=== PATIENT | female | born 1970 | race Caucasian/White ===

== ENCOUNTER 2016-11-09 13:32 | Emergency (ER) | payer OTHER ==
[~2016-11-09] VITALS: Wt 82.6 kg
[~2016-11-09 13:32] MED LIST: 'PARAFON FORTE500 M1 PO; ANTIVERT25 MG PO; ATIVAN1 MG PO; AUGMENTIN 875 M1 TAB PO; BACTRIM DS 8001 TA1 PO; CELEXA10 MG PO; CELEXA20 MG PO; CIPRO250 MG PO; CIPRODEX 0.3%-7.5 ML OT; CIPROFLOXACIN500 MG PO; CLARITIN10 MG PO; CYCLOBENZAPRINE10 MG PO; DARVOCET N 1001 TAB PO; EFFEXOR XR150 MG PO; FLEXERIL10 MG PO; FLEXERIL5 MG PO; LOPRESSOR100 MG PO; Lopressor25 MG PO; MACROBID100 M1 PO; MAXIDE; MEDROL DOSEPAK4 MG PO; MELOXICAM7.5 MG PO; MOTRIN800 MG PO; NAPROSYN500 MG PO; NEURONTIN100 MG PO; NEURONTIN300 MG PO; NORFLEX100 MG PO; PERCOCET 325 MG1 TA2 PO; PHENERGAN25 M1 PO; PREDNICOT20 MG PO; PRILOSEC20 M1 PO; ROBAXIN500 MG PO; ROBAXIN750 MG PO; SEPTRA DS 800 M1 TAB PO; TOPAMAX25 M3 PO; TRAMADOL HCL50 MG PO; TYLENOL W/CODEI1 TA2 PO; ULTRAM50 MG PO; VICODIN 500 MG-1 TAB PO; ZITHROMAX Z PA250 MG PO; Zofran4 MG PO
[2016-11-09 13:53] VITALS: BP 134/80
[2016-11-09] MEDS ORDERED: ABILIFY5 MG PO (13:56)
[2016-11-09 14:31] LABS: EOS % 0.1 % (1.0-4.0); HEMATOCRIT 37.7 % (37.0-47.0); HEMOGLOBIN 12.6 g/dl (12.0-16.0); LYMPH # 1.7 10*3/uL (1.3-4.4); LYMPH % 24.7 % (27.0-41.0); MEAN CELL VOLUME 89.3 fl (81.0-99.0); MEAN CORPUSCULAR HGB 29.9 pg (27.0-31.0); MEAN CORPUSCULAR HGB CONC 33.4 g/dl (33.0-37.0); MONO # 0.5 10*3/uL (0.1-1.0); NEUT # 4.5 10*3/uL (2.3-7.9); NEUT % 67.8 % (47.0-73.0); PLATELET COUNT AUTOMATED 268 10*3/uL (130-400); RED BLOOD COUNT 4.22 10*6/uL (4.10-5.10); RED CELL DISTRI WIDTH 12.3 % (0-14.5); WHITE BLOOD COUNT 6.7 10*3/uL (4.8-10.8)
[2016-11-09 14:45] LABS: ALBUMIN 3.9 gm/dl (3.1-4.5); BILIRUBIN, TOTAL 0.4 mg/dl (0.2-1.0); BUN 15 mg/dl (7-24); CARBON DIOXIDE 27 mmol/L (21-32); CHLORIDE 107 mmol/L (98-107); EST GLOM FILT AFRICAN AMERICAN > 60 ml/min; GLUCOSE 100 mg/dL (65-99); POTASSIUM 4.3 mmol/L (3.5-5.1); SGOT/AST 13 IU/L (3-35); SGPT/ALT 22 U/L (12-78); SODIUM 143 mmol/L (136-145); TOTAL PROTEIN 7.7 gm/dL (6.4-8.2)
[2016-11-09 14:46] LABS: ALKALINE PHOSPHATASE 119 U/L (45-117)
[2016-11-09 15:05] LABS: CKMB < 0.5 ng/ml (0.5-3.6); TROPONIN I < 0.015 ng/ml (<0.5)
[2016-11-09 15:45] LABS: BILIRUBIN NEGATIVE (NEGATIVE); BLOOD NEGATIVE (NEGATIVE); CLARITY SL CLOUDY (CLEAR); COLOR YELLOW (YELLOW); GLUCOSE NEGATIVE (NEGATIVE); KETONE NEGATIVE (NEGATIVE); LEUKO ESTERASE NEGATIVE (NEGATIVE); NITRITE NEGATIVE (NEGATIVE); PROTEIN NEGATIVE (NEGATIVE)
[2016-11-09 16:12] LABS: BACTERIA TRACE; RBC 0-2 rbc/hpf (0-2); URINE REFLEX COMMENT NO (NO); WBC 0-2 wbc/hpf (0-5)
== END 2016-11-09 17:59 | disposition home or self-care (01) ==
LOC: ED 13:32
PROVIDERS: Nurse Practitioner Family
DX: R10.13 Epigastric pain (principal); K21.9 Gastro-esophageal reflux disease without esophagitis; Z90.49 Acquired absence of other specified parts of digestive tract; Z90.710 Acquired absence of both cervix and uterus; Z88.6 Allergy status to analgesic agent; Z88.8 Allergy status to other drugs, medicaments and biological substances

== ENCOUNTER 2017-04-11 10:22 | Emergency (ER) | payer OTHER ==
[~2017-04-11] VITALS: Wt 83.0 kg
[~2017-04-11 10:22] MED LIST changes: -BUSPAR5 MG PO; -PRISTIQ50 MG PO; -ZANTAC 150150 MG PO
[2017-04-11 10:38] VITALS: BP 135/82
[2017-04-11] MEDS ORDERED: PRISTIQ50 MG PO (10:53)
[2017-04-11] MEDS ORDERED: BUSPAR5 MG PO (10:53)
[2017-04-11] MEDS ORDERED: CYCLOBENZAPRINE10 MG PO (10:54)
[2017-04-15] MEDS ORDERED: ZANTAC 150150 MG PO (16:40)
== END 2017-04-11 11:21 | disposition home or self-care (01) ==
LOC: ED 10:22
DX: G89.29 Other chronic pain (principal); M54.5 Low back pain; Z90.49 Acquired absence of other specified parts of digestive tract; Z88.1 Allergy status to other antibiotic agents; Z88.8 Allergy status to other drugs, medicaments and biological substances; Z79.899 Other long term (current) drug therapy

== ENCOUNTER → 2017-04-11 | Outpatient (CLI) | payer OTHER ==
[~2017-04-11] MED LIST changes: +ABILIFY5 MG PO; +BUSPAR5 MG PO; +PRISTIQ50 MG PO; +ZANTAC 150150 MG PO
== END | disposition home or self-care (01) ==
LOC: MRI 09:25
DX: M51.16 Intervertebral disc disorders with radiculopathy, lumbar region (principal); M48.06 Spinal stenosis, lumbar region; M51.37 Other intervertebral disc degeneration, lumbosacral region; M47.896 Other spondylosis, lumbar region; M51.45 Schmorl's nodes, thoracolumbar region

== ENCOUNTER → 2017-04-19 | Day surgery (SDC) | payer OTHER ==
[~2017-04-19] VITALS: Ht 160 cm; Wt 83.5 kg
[~2017-04-19] MED LIST changes: +BUSPAR5 MG PO; +PRISTIQ50 MG PO; +ZANTAC 150150 MG PO
[2017-04-19 06:55] VITALS: BP 117/78
[2017-04-19 07:38] VITALS: BP 92/44
[2017-04-19 07:53] VITALS: BP 96/44
[2017-04-19 08:06] VITALS: BP 96/44
== END | disposition home or self-care (01) ==
LOC: SDC 04-16 10:15
DX: Z12.11 Encounter for screening for malignant neoplasm of colon (principal); R10.13 Epigastric pain; K44.9 Diaphragmatic hernia without obstruction or gangrene; F41.9 Anxiety disorder, unspecified; F32.9 Major depressive disorder, single episode, unspecified; Z98.84 Bariatric surgery status; Z90.49 Acquired absence of other specified parts of digestive tract; M54.9 Dorsalgia, unspecified; G89.29 Other chronic pain; Z83.3 Family history of diabetes mellitus; Z82.49 Family history of ischemic heart disease and other diseases of the circulatory system

== ENCOUNTER 2017-12-14 07:20 | Inpatient (IN) | payer OTHER ==
[~2017-12-14] VITALS: Ht 172.7 cm; Wt 94.4 kg
--- NOTE | ~2017-12-14 | CON ---
[place], [place] REPORT OF CONSULTATION NAME: DG ESTRADA [facility] #: [id number] UNIT #: [id number] ROOM: 402 DOCTOR: CARLOS BERNARD MD BIRTHDATE: [birth year] DOS: 12/14/2017 REASON FOR CONSULTATION: Left shoulder pain. HISTORY OF PRESENT ILLNESS: The patient is a 47-year-old woman whom I saw on 12/14/2017 at her bedside with family in attendance. She has no previous history of heart disease and her risk factors for coronary artery disease only include a family history of heart disease. She states that she was doing well until the last several days. She does have chronic low back pain, which is mostly on the right, but in the last several days her pains seem to radiate into her left axilla, left shoulder and left upper anterior chest as well as into her left neck. There is nothing that she does that makes the pain better or worse, but it does make her feel tired. She denies nausea or diaphoresis. The pain got severe and therefore she came to the hospital early this morning. Since she has been here, she has had no acute EKG changes and despite several hours of pain, serial cardiac biomarkers have been negative. Her NICHOLAS risk score is 0. PAST MEDICAL HISTORY: Includes, 1. Chronic low back pain. 2. History of cervical fusion for neck pain. 3. Status post hysterectomy. 4. Status post cholecystectomy. FAMILY HISTORY: Positive for heart attack and strokes in her mother. Her mother had her first heart attack at age 72. Her brother has had 2 heart attacks starting at age 48. REVIEW OF SYSTEMS: The patient denies diplopia or loss of vision. She denies focal weakness. She denies lightheadedness or syncope. She denies fevers, chills, sweats or recent weight change. She denies nausea or vomiting. She has had some dyspnea with exertion lately. She denies orthopnea, PND or peripheral edema. She denies any history of deep venous thrombosis. She denies cough or hemoptysis. She denies any hematemesis. She denies any change in bowel or bladder habits and denies blood in her stools or urine. She denies any skin rashes. She denies any peripheral edema or swollen cords in her legs. She states that she walks well. She denies polyuria, polydipsia, heat or cold intolerance. The remainder of the review of systems is negative except as noted above. MEDICATIONS PRIOR TO ADMISSION: Buspirone 5 mg b.i.d., Pristiq 50 mg daily, omeprazole 20 mg daily, tramadol 50 mg b.i.d. p.r.n. pain, trazodone 50 mg at bedtime. ALLERGIES: SHE lists allergies to HYDROCODONE, METAXALONE, and SUMATRIPTAN. SOCIAL HISTORY: The patient is . She does not smoke, consume alcohol or use illegal drugs. PHYSICAL EXAMINATION: GENERAL: The patient is an overweight white female who is awake, alert and [place], [place] REPORT OF CONSULTATION NAME: DG ESTRADA UNIT #: [id number] ROOM: [facility] DOCTOR: CARLOS BERNARD MD BIRTHDATE: [birth year] oriented. VITAL SIGNS: Pulse is 63 and regular, blood pressure is 124/71. She is afebrile. She weighs 94.4 kg and has a body mass index of 31.7. HEENT: Normocephalic and atraumatic. Extraocular muscles are intact. Sclerae are clear. Pupils equal, round and react to light. The oral mucosa is moist. Tongue is midline. NECK: Supple. She does have tenderness along her left sternocleidomastoid muscle group and her left trapezius muscle group, both of which reproduce her pain. She has no neck or supraclavicular masses. Carotids are full without bruits. There is no neck vein distention noted. LUNGS: Respirations are unlabored. Her chest is clear to auscultation and percussion. As noted, her trapezius muscles and sternocleidomastoid muscles are tender and these do reproduce her chest pain. She has no presacral edema. CARDIOVASCULAR: Her heart has a regular rhythm without murmurs, rubs or gallops. The PMI is not displaced. There is no precordial heave, lift or thrill. ABDOMEN: Obese, but otherwise benign, without mass, organomegaly or bruits. She has no palpable masses or rebound. EXTREMITIES: Showed no clubbing, cyanosis or edema. Peripheral pulses are palpable in the feet. LABORATORY DATA: I reviewed her electrocardiogram. It showed sinus rhythm with mild nonspecific T-wave flattening. There was no ST elevation or depression. Hemoglobin is 11.6, hematocrit 34.4. There are 4200 white cells and 238,000 platelets. Sodium is 140, potassium 3.6, BUN 12, creatinine 0.71. Serial troponin levels have been normal. Her most recent hemoglobin A1c in 2015 was 5.7. Her most recent cholesterol in February 2016 was 156 with an LDL of 80 and an HDL of 45. IMPRESSIONS: 1. Atypical chest pain almost certainly musculoskeletal in origin. The pain is easily reproducible on exam and she shows no acute EKG changes or elevation in cardiac troponin despite hours of discomfort. 2. NICHOLAS risk score equals zero. 3. Family history of coronary artery disease in her mother and brother. 4. Obesity. PLAN: No other cardiac workup is necessary during this hospitalization. I believe that the patient can be discharged to home for outpatient stress testing next week. The patient tells me she can walk for a treadmill stress test, so we will arrange for her to have a stress myocardial perfusion study utilizing nuclear imaging. I thank the hospitalist physicians for asking our advice regarding the patient's care. [place], [place] REPORT OF CONSULTATION NAME: DG ESTRADA UNIT #: [id number] ROOM: 402 DOCTOR: CARLOS BERNARD MD BIRTHDATE: [birth year] CARLOS BERNARD MD CM:CONSTR:REPORT OF CONSULTATION 1644 12/14/17 2252 interface
[2017-12-14 07:27] VITALS: BP 122/76
[2017-12-14 07:53] LABS: HEMATOCRIT 34.4 % (37.0-47.0); HEMOGLOBIN 11.6 g/dl (12.0-16.0); LYMPH # 1.3 10*3/uL (1.3-4.4); LYMPH % 31.1 % (27.0-41.0); MEAN CELL VOLUME 88.7 fl (81.0-99.0); MEAN CORPUSCULAR HGB 29.9 pg (27.0-31.0); MEAN CORPUSCULAR HGB CONC 33.7 g/dl (33.0-37.0); MEAN PLATELET VOLUME 9.5 fl (9.6-12.3); MONO # 0.3 10*3/uL (0.1-1.0); MONO % 7.1 % (3.0-9.0); NEUT # 2.6 10*3/uL (2.3-7.9); NEUT % 61.6 % (47.0-73.0); PLATELET COUNT AUTOMATED 238 10*3/uL (130-400); RED BLOOD COUNT 3.88 10*6/uL (4.10-5.10); RED CELL DISTRI WIDTH 12.6 % (0-14.5); WHITE BLOOD COUNT 4.2 10*3/uL (4.8-10.8)
[2017-12-14 08:00] LABS: ACT PARTIAL THROMBO TIME 26.4 SECONDS (20.8-31.5)
[2017-12-14 08:12] LABS: ALBUMIN 3.5 gm/dl (3.1-4.5); ALKALINE PHOSPHATASE 131 U/L (45-117); BUN 12 mg/dl (7-24); CHLORIDE 106 mmol/L (98-107); CREATININE 0.71 mg/dL (0.55-1.02); POTASSIUM 3.6 mmol/L (3.5-5.1); SGOT/AST 16 IU/L (3-35); SGPT/ALT 20 U/L (12-78); SODIUM 140 mmol/L (136-145); TOTAL PROTEIN 7.1 gm/dL (6.4-8.2)
[2017-12-14 08:16] LABS: TROPONIN I < 0.015 ng/ml (<0.045)
[2017-12-14] MEDS ORDERED: SLEEPING PILL (08:19)
[2017-12-14 08:30] VITALS: BP 136/72
[2017-12-14] MEDS ORDERED: TRAZODONE50 MG PO (09:04)
[2017-12-14 12:03] VITALS: BP 124/71
[2017-12-14 16:00] VITALS: BP 123/76
== END 2017-12-14 17:19 | disposition home or self-care (01) | DRG 313 ==
LOC: ED 07:20 → EDHOLD 08:02 → 4E 08:18
PROVIDERS: Emergency Medicine
DX: R07.89 Other chest pain (principal); I25.10 Atherosclerotic heart disease of native coronary artery without angina pectoris; E83.41 Hypermagnesemia; K21.9 Gastro-esophageal reflux disease without esophagitis; M54.2 Cervicalgia; F41.9 Anxiety disorder, unspecified; D72.819 Decreased white blood cell count, unspecified; E83.51 Hypocalcemia; D50.9 Iron deficiency anemia, unspecified; E66.9 Obesity, unspecified; E78.5 Hyperlipidemia, unspecified; F32.9 Major depressive disorder, single episode, unspecified; G43.909 Migraine, unspecified, not intractable, without status migrainosus; M54.9 Dorsalgia, unspecified; G89.29 Other chronic pain; Z88.5 Allergy status to narcotic agent; Z88.8 Allergy status to other drugs, medicaments and biological substances; Z90.710 Acquired absence of both cervix and uterus; Z90.49 Acquired absence of other specified parts of digestive tract; Z87.828 Personal history of other (healed) physical injury and trauma; Z79.899 Other long term (current) drug therapy; Z98.84 Bariatric surgery status; Z98.1 Arthrodesis status; Z82.49 Family history of ischemic heart disease and other diseases of the circulatory system; Z68.31 Body mass index [BMI] 31.0-31.9, adult

== ENCOUNTER 2018-03-23 00:16 | Emergency (ER) | payer OTHER ==
[~2018-03-23] VITALS: Ht 162.5 cm; Wt 83.9 kg
[~2018-03-23 00:16] MED LIST changes: +SLEEPING PILL; +TRAZODONE50 MG PO
[2018-03-23 00:24] VITALS: BP 131/83
[2018-03-23 00:36] LABS: BILIRUBIN NEGATIVE (NEGATIVE); BLOOD TRACE-INTACT (NEGATIVE); CLARITY CLEAR (CLEAR); COLOR YELLOW (YELLOW); GLUCOSE NEGATIVE (NEGATIVE); KETONE NEGATIVE (NEGATIVE); LEUKO ESTERASE 1+ (NEGATIVE); NITRITE NEGATIVE (NEGATIVE); PH 5.5 (5.0-9.0); SPECIFIC GRAVITY 1.025 (1.005-1.030); UROBILINOGEN 0.2 E.U./dl (0.2-1.0)
[2018-03-23 00:50] LABS: EOS % 0.3 % (1.0-4.0); HEMATOCRIT 33.5 % (37.0-47.0); HEMOGLOBIN 11.1 g/dl (12.0-16.0); LYMPH # 2.5 10*3/uL (1.3-4.4); LYMPH % 36.6 % (27.0-41.0); MEAN CELL VOLUME 91.3 fl (81.0-99.0); MEAN CORPUSCULAR HGB 30.2 pg (27.0-31.0); MEAN CORPUSCULAR HGB CONC 33.1 g/dl (33.0-37.0); MEAN PLATELET VOLUME 9.8 fl (9.6-12.3); MONO # 0.4 10*3/uL (0.1-1.0); MONO % 5.5 % (3.0-9.0); NEUT # 3.8 10*3/uL (2.3-7.9); NEUT % 57.3 % (47.0-73.0); PLATELET COUNT AUTOMATED 277 10*3/uL (130-400); RED BLOOD COUNT 3.67 10*6/uL (4.10-5.10); WHITE BLOOD COUNT 6.7 10*3/uL (4.8-10.8)
[2018-03-23 00:59] LABS: EPITHELIAL CELLS 20-25
[2018-03-23 01:09] LABS: ALBUMIN 3.8 gm/dl (3.1-4.5); ALKALINE PHOSPHATASE 110 U/L (45-117); BUN 14 mg/dl (7-24); CHLORIDE 110 mmol/L (98-107); LIPASE 123 U/L (73-393); POTASSIUM 3.8 mmol/L (3.5-5.1); SGOT/AST 13 IU/L (3-35); SGPT/ALT 20 U/L (12-78); SODIUM 143 mmol/L (136-145); TOTAL PROTEIN 7.1 gm/dL (6.4-8.2)
[2018-03-23] MEDS ORDERED: ZOFRAN ODT4 MG SL (01:40)
[2018-03-23] MEDS ORDERED: MACROBID100 M1 PO (01:41)
[2018-03-23] MEDS ORDERED: ULTRAM50 MG PO (02:44)
== END 2018-03-23 03:19 | disposition home or self-care (01) ==
LOC: ED 00:16
PROVIDERS: Physician Assistant
DX: N39.0 Urinary tract infection, site not specified (principal); R31.9 Hematuria, unspecified; R10.32 Left lower quadrant pain; R10.12 Left upper quadrant pain; G89.29 Other chronic pain; E66.01 Morbid (severe) obesity due to excess calories; Z68.41 Body mass index [BMI] 40.0-44.9, adult; Z90.49 Acquired absence of other specified parts of digestive tract; Z90.710 Acquired absence of both cervix and uterus; Z79.899 Other long term (current) drug therapy; Z88.5 Allergy status to narcotic agent; Z88.8 Allergy status to other drugs, medicaments and biological substances; Z98.84 Bariatric surgery status; Z87.442 Personal history of urinary calculi

== ENCOUNTER 2018-03-25 18:11 | Inpatient (IN) | payer OTHER ==
[~2018-03-25] VITALS: Ht 162.5 cm; Wt 98.9 kg
[~2018-03-25 18:11] MED LIST changes: +ZOFRAN ODT4 MG SL
[2018-03-25 18:17] VITALS: BP 141/74
[2018-03-25 18:32] VITALS: BP 115/85
[2018-03-25 18:53] LABS: HEMATOCRIT 30.1 % (37.0-47.0); HEMOGLOBIN 10.1 g/dl (12.0-16.0); LYMPH # 2.1 10*3/uL (1.3-4.4); LYMPH % 35.5 % (27.0-41.0); MEAN CELL VOLUME 91.2 fl (81.0-99.0); MEAN CORPUSCULAR HGB 30.6 pg (27.0-31.0); MEAN CORPUSCULAR HGB CONC 33.6 g/dl (33.0-37.0); MEAN PLATELET VOLUME 9.3 fl (9.6-12.3); MONO # 0.5 10*3/uL (0.1-1.0); MONO % 7.7 % (3.0-9.0); NEUT # 3.4 10*3/uL (2.3-7.9); NEUT % 56.5 % (47.0-73.0); PLATELET COUNT AUTOMATED 246 10*3/uL (130-400); RED CELL DISTRI WIDTH 13.1 % (0-14.5)
[2018-03-25 19:03] LABS: ACT PARTIAL THROMBO TIME 25.7 SECONDS (20.8-31.5); INTERNATIONAL NORM RATIO 0.9 (2.0-3.5)
[2018-03-25 19:11] LABS: ALBUMIN 3.5 gm/dl (3.1-4.5); ALKALINE PHOSPHATASE 114 U/L (45-117); BUN 16 mg/dl (7-24); CHLORIDE 107 mmol/L (98-107); CREATININE 0.75 mg/dL (0.55-1.02); LIPASE 150 U/L (73-393); POTASSIUM 3.6 mmol/L (3.5-5.1); SGOT/AST 15 IU/L (3-35); SGPT/ALT 26 U/L (12-78); SODIUM 141 mmol/L (136-145); TOTAL PROTEIN 6.8 gm/dL (6.4-8.2)
[2018-03-25 19:13] LABS: TROPONIN I < 0.015 ng/ml (<0.045)
[2018-03-25 19:48] LABS: BILIRUBIN NEGATIVE (NEGATIVE); BLOOD TRACE-INTACT (NEGATIVE); CLARITY SL CLOUDY (CLEAR); COLOR YELLOW (YELLOW); GLUCOSE NEGATIVE (NEGATIVE); KETONE TRACE (NEGATIVE); LEUKO ESTERASE NEGATIVE (NEGATIVE); NITRITE NEGATIVE (NEGATIVE); PH 6.5 (5.0-9.0)
[2018-03-25 19:59] LABS: BACTERIA TRACE; RBC 16-20 rbc/hpf (0-2)
[2018-03-25 21:10] VITALS: BP 124/71
[2018-03-26] VITALS: BP 107/63
[2018-03-26] MEDS ORDERED: ZYRTEC10 MG PO (00:19)
[2018-03-26 07:11] LABS: HEMATOCRIT 33.2 % (37.0-47.0); MEAN CORPUSCULAR HGB 30.1 pg (27.0-31.0); MEAN CORPUSCULAR HGB CONC 33.1 g/dl (33.0-37.0); MEAN PLATELET VOLUME 9.9 fl (9.6-12.3); PLATELET COUNT AUTOMATED 271 10*3/uL (130-400); RED BLOOD COUNT 3.65 10*6/uL (4.10-5.10); RED CELL DISTRI WIDTH 13.1 % (0-14.5); WHITE BLOOD COUNT 9.1 10*3/uL (4.8-10.8)
[2018-03-26 07:40] LABS: PLATELET SUFFICIENCY NORMAL (NORMAL); TOTAL CELLS COUNTED 100 #CELLS
[2018-03-26 07:41] LABS: ACT PARTIAL THROMBO TIME 25.4 SECONDS (20.8-31.5)
[2018-03-26 07:42] LABS: ALBUMIN 3.6 gm/dl (3.1-4.5); ALKALINE PHOSPHATASE 115 U/L (45-117); BUN 11 mg/dl (7-24); CHLORIDE 107 mmol/L (98-107); CHOLESTEROL 134 mg/dL (<200); CREATININE 0.61 mg/dL (0.55-1.02); FREE T4 1.09 ng/dl (0.76-1.46); HDL CHOLESTEROL 50 mg/dl (40-60); LDL CHOLESTEROL 70 mg/dL (9-159); PHOSPHOROUS 3.1 mg/dL (2.5-4.9); POTASSIUM 3.5 mmol/L (3.5-5.1); SGOT/AST 12 IU/L (3-35); SGPT/ALT 21 U/L (12-78); SODIUM 142 mmol/L (136-145); TRIGLYCERIDES 72 mg/dl (<150); VLDL CHOLESTEROL 14 mg/dL (6-40)
[2018-03-26 07:47] LABS: THYROID STIM HORMONE (HS) 0.849 uIU/ml (0.358-4.75)
[2018-03-26 08:00] VITALS: BP 110/66
[2018-03-26 09:39] LABS: VITAMIN D, 25-HYDROXY 16.9 ng/mL (30-100)
== END 2018-03-26 09:12 | disposition left against medical advice (07) | DRG 395 ==
LOC: ED 18:11 → 4E 19:58 → EDHOLD 19:58 → 4E 20:49
PROVIDERS: Internal Medicine; Physician Assistant
DX: K65.4 Sclerosing mesenteritis (principal); E66.01 Morbid (severe) obesity due to excess calories; K76.0 Fatty (change of) liver, not elsewhere classified; F32.9 Major depressive disorder, single episode, unspecified; M51.26 Other intervertebral disc displacement, lumbar region; R73.9 Hyperglycemia, unspecified; M54.32 Sciatica, left side; F41.9 Anxiety disorder, unspecified; J30.2 Other seasonal allergic rhinitis; Z53.21 Procedure and treatment not carried out due to patient leaving prior to being seen by health care provider; Z68.37 Body mass index [BMI] 37.0-37.9, adult; Z88.6 Allergy status to analgesic agent; Z88.8 Allergy status to other drugs, medicaments and biological substances; Z88.2 Allergy status to sulfonamides; Z98.1 Arthrodesis status; Z90.710 Acquired absence of both cervix and uterus; Z90.49 Acquired absence of other specified parts of digestive tract; Z98.84 Bariatric surgery status; Z83.3 Family history of diabetes mellitus; Z82.49 Family history of ischemic heart disease and other diseases of the circulatory system; Z91.5 Personal history of self-harm; Z79.899 Other long term (current) drug therapy

== ENCOUNTER 2018-08-10 07:45 | Emergency (ER) | payer OTHER ==
[~2018-08-10] VITALS: Ht 157.4 cm; Wt 81.6 kg
[~2018-08-10 07:45] MED LIST changes: +AUGMENTIN 875-875 MG PO; +ZYRTEC10 MG PO
[2018-08-10 07:46] VITALS: BP 125/74
== END 2018-08-10 08:13 | disposition home or self-care (01) ==
LOC: ED 07:45
DX: S99.921A Unspecified injury of right foot, initial encounter (principal); I10 Essential (primary) hypertension; E66.9 Obesity, unspecified; Z88.6 Allergy status to analgesic agent; Z88.8 Allergy status to other drugs, medicaments and biological substances; Z79.899 Other long term (current) drug therapy; W01.0XXA Fall on same level from slipping, tripping and stumbling without subsequent striking against object, initial encounter; Y93.89 Activity, other specified; Y92.89 Other specified places as the place of occurrence of the external cause; Y99.8 Other external cause status

== ENCOUNTER 2019-03-11 06:33 | Emergency (ER) | payer OTHER ==
[~2019-03-11] VITALS: Ht 162.5 cm; Wt 82.6 kg
[2019-03-11 06:33] VITALS: BP 127/76
[~2019-03-11 06:33] MED LIST changes: +CHLORZOXAZONE500 M2 PO
[2019-03-11] MEDS ORDERED: AMOXICILLIN500 M2 PO (08:24)
[2019-03-11] MEDS ORDERED: DIFLUCAN150 MG PO (08:24)
== END 2019-03-11 08:28 | disposition home or self-care (01) ==
LOC: ED 06:33
DX: J02.9 Acute pharyngitis, unspecified (principal); I10 Essential (primary) hypertension; E66.9 Obesity, unspecified; Z88.6 Allergy status to analgesic agent; Z88.8 Allergy status to other drugs, medicaments and biological substances; Z79.899 Other long term (current) drug therapy; Z79.2 Long term (current) use of antibiotics; Z90.49 Acquired absence of other specified parts of digestive tract; Z90.710 Acquired absence of both cervix and uterus

== ENCOUNTER 2019-04-30 18:24 | Emergency (ER) | payer OTHER ==
[~2019-04-30] VITALS: Ht 162.5 cm; Wt 85.7 kg
[~2019-04-30 18:24] MED LIST changes: +AMOXICILLIN500 M2 PO; +DIFLUCAN150 MG PO
[2019-04-30 18:25] VITALS: BP 130/70
[2019-04-30] MEDS ORDERED: FEROSUL325 MG PO (19:13)
[2019-04-30] MEDS ORDERED: VITAMIN D-32000 UNI1 PO (19:13)
[2019-04-30 19:14] LABS: BILIRUBIN NEGATIVE (NEGATIVE); BLOOD TRACE-INTACT (NEGATIVE); CLARITY CLEAR (CLEAR); COLOR YELLOW (YELLOW); GLUCOSE NEGATIVE (NEGATIVE); KETONE TRACE (NEGATIVE); LEUKO ESTERASE NEGATIVE (NEGATIVE); NITRITE NEGATIVE (NEGATIVE); SPECIFIC GRAVITY >= 1.030 (1.005-1.030)
[2019-04-30 19:19] LABS: BACTERIA 1+
[2019-04-30] MEDS ORDERED: Orphenadrine C100 MG PO (19:31)
[2019-04-30] MEDS ORDERED: ULTRAM50 MG PO (19:31)
[2019-04-30] MEDS ORDERED: MACROBID100 M1 PO (19:32)
== END 2019-04-30 19:51 | disposition home or self-care (01) ==
LOC: ED 18:24
PROVIDERS: Emergency Medicine Emergency Medical Services
DX: S39.012A Strain of muscle, fascia and tendon of lower back, initial encounter (principal); R82.71 Bacteriuria; E66.9 Obesity, unspecified; Z79.899 Other long term (current) drug therapy; Z88.6 Allergy status to analgesic agent; Z88.8 Allergy status to other drugs, medicaments and biological substances; X58.XXXA Exposure to other specified factors, initial encounter; Y93.89 Activity, other specified; Y92.89 Other specified places as the place of occurrence of the external cause; Y99.8 Other external cause status

== ENCOUNTER 2019-08-08 05:49 | Emergency (ER) | payer OTHER ==
[~2019-08-08] VITALS: Ht 165.1 cm; Wt 84.8 kg
[~2019-08-08 05:49] MED LIST changes: +FEROSUL325 MG PO; +Orphenadrine C100 MG PO; +VITAMIN D-32000 UNI1 PO
[2019-08-08 05:51] VITALS: BP 118/62
[2019-08-08] MEDS ORDERED: PREDNISONE10 MG PO ×2 (06:30→06:33)
[2019-08-08] MEDS ORDERED: KETOROLAC10 MG PO ×2 (06:30→06:33)
[2019-08-08] MEDS ORDERED: Orphenadrine C100 MG PO (06:33)
[2019-08-08 06:36] LABS: BILIRUBIN NEGATIVE (NEGATIVE); BLOOD 1+ (NEGATIVE); CLARITY SL CLOUDY (CLEAR); COLOR YELLOW (YELLOW); GLUCOSE NEGATIVE (NEGATIVE); KETONE NEGATIVE (NEGATIVE); LEUKO ESTERASE 2+ (NEGATIVE); NITRITE NEGATIVE (NEGATIVE); UROBILINOGEN 0.2 E.U./dl (0.2-1.0)
[2019-08-08 06:44] LABS: BACTERIA 2+; EPITHELIAL CELLS 21-30; WBC 31-40 wbc/hpf (0-5)
== END 2019-08-08 06:45 | disposition home or self-care (01) ==
LOC: ED 05:49
PROVIDERS: Emergency Medicine Emergency Medical Services
DX: M54.5 Low back pain (principal); M62.830 Muscle spasm of back; I10 Essential (primary) hypertension; E66.9 Obesity, unspecified; Z90.710 Acquired absence of both cervix and uterus; Z98.890 Other specified postprocedural states; Z90.49 Acquired absence of other specified parts of digestive tract; Z88.5 Allergy status to narcotic agent; Z88.6 Allergy status to analgesic agent; Z88.8 Allergy status to other drugs, medicaments and biological substances

== ENCOUNTER 2019-08-23 07:21 | Emergency (ER) | payer OTHER ==
[~2019-08-23] VITALS: Ht 162.5 cm; Wt 87.5 kg
[~2019-08-23 07:21] MED LIST changes: +KETOROLAC10 MG PO; +PREDNISONE10 MG PO
[2019-08-23 07:22] VITALS: BP 131/74
[2019-08-23 07:56] LABS: EOS % 0.1 % (1.0-4.0); HEMATOCRIT 37.1 % (37.0-47.0); LYMPH # 1.8 10*3/uL (1.3-4.4); LYMPH % 23.8 % (27.0-41.0); MEAN CELL VOLUME 96.1 fl (81.0-99.0); MEAN CORPUSCULAR HGB 31.1 pg (27.0-31.0); MEAN CORPUSCULAR HGB CONC 32.3 g/dl (33.0-37.0); MEAN PLATELET VOLUME 9.3 fl (9.6-12.3); MONO # 0.6 10*3/uL (0.1-1.0); MONO % 7.8 % (3.0-9.0); NEUT # 5.1 10*3/uL (2.3-7.9); NEUT % 67.8 % (47.0-73.0); PLATELET COUNT AUTOMATED 255 10*3/uL (130-400); RED BLOOD COUNT 3.86 10*6/uL (4.10-5.10); RED CELL DISTRI WIDTH 12.5 % (0-14.5); WHITE BLOOD COUNT 7.5 10*3/uL (4.8-10.8)
== END 2019-08-23 09:44 | disposition home or self-care (01) ==
LOC: ED 07:21
PROVIDERS: Emergency Medicine
DX: M25.562 Pain in left knee (principal); I10 Essential (primary) hypertension; E66.9 Obesity, unspecified; M19.90 Unspecified osteoarthritis, unspecified site; Z79.899 Other long term (current) drug therapy; Z88.6 Allergy status to analgesic agent; Z88.8 Allergy status to other drugs, medicaments and biological substances

== ENCOUNTER 2020-04-01 12:38 | Emergency (ER) | payer OTHER ==
[~2020-04-01] VITALS: Ht 162.5 cm; Wt 99.8 kg
[2020-04-01 12:47] VITALS: BP 120/78
[2020-04-01 12:58] LABS: EOS % 0.1 % (1.0-4.0); HEMATOCRIT 36.1 % (37.0-47.0); LYMPH # 2.2 10*3/uL (1.3-4.4); MEAN CORPUSCULAR HGB 30.4 pg (27.0-31.0); MEAN CORPUSCULAR HGB CONC 32.7 g/dl (33.0-37.0); MEAN PLATELET VOLUME 9.4 fl (9.6-12.3); MONO # 0.5 10*3/uL (0.1-1.0); MONO % 7.3 % (3.0-9.0); NEUT # 4.4 10*3/uL (2.3-7.9); NEUT % 61.2 % (47.0-73.0); PLATELET COUNT AUTOMATED 284 10*3/uL (130-400); RED BLOOD COUNT 3.88 10*6/uL (4.10-5.10); RED CELL DISTRI WIDTH 12.1 % (0-14.5); WHITE BLOOD COUNT 7.1 10*3/uL (4.8-10.8)
[2020-04-01 13:09] LABS: ACT PARTIAL THROMBO TIME 27.1 SECONDS (20.0-32.1); INTERNATIONAL NORM RATIO 0.9 (2.0-3.5)
--- NOTE | 2020-04-01 13:09 | NUR ---
Medication list provided by Pt.
[2020-04-01 13:16] LABS: ALBUMIN 3.7 gm/dl (3.1-4.5); ALKALINE PHOSPHATASE 107 U/L (45-117); BUN 14 mg/dl (7-24); CHLORIDE 109 mmol/L (98-107); CREATININE 0.82 mg/dL (0.55-1.02); SGOT/AST 15 IU/L (3-35); SGPT/ALT 23 U/L (12-78); SODIUM 139 mmol/L (136-145); TOTAL PROTEIN 7.5 gm/dL (6.4-8.2); TROPONIN I < 0.015 ng/ml (<0.045)
[2020-04-01 13:21] VITALS: BP 114/58
[2020-04-01 13:51] VITALS: BP 112/64
[2020-04-01 14:21] VITALS: BP 111/63
== END 2020-04-01 14:20 | disposition left against medical advice (07) ==
LOC: ED 12:38 → EDHOLD 14:09 → ED 14:20
PROVIDERS: Internal Medicine
DX: R07.9 Chest pain, unspecified (principal); R11.0 Nausea; R42 Dizziness and giddiness; R00.2 Palpitations; M79.89 Other specified soft tissue disorders; Z88.6 Allergy status to analgesic agent; Z79.899 Other long term (current) drug therapy; Z88.8 Allergy status to other drugs, medicaments and biological substances

== ENCOUNTER 2020-05-11 18:56 | Emergency (ER) | payer OTHER ==
[2020-05-11 19:03] VITALS: BP 135/83
[2020-05-11] MEDS ORDERED: CYCLOBENZAPRINE10 MG PO (19:07)
[2020-05-11] MEDS ORDERED: PERCOCET 5-3251 EACH PO (22:03)
[2020-05-11] MEDS ORDERED: PREDNISONE50 MG PO (22:09)
== END 2020-05-11 22:18 | disposition home or self-care (01) ==
LOC: ED 18:56
DX: M54.5 Low back pain (principal); M62.830 Muscle spasm of back; M54.6 Pain in thoracic spine; Z88.8 Allergy status to other drugs, medicaments and biological substances; Z88.6 Allergy status to analgesic agent; Z79.899 Other long term (current) drug therapy

== ENCOUNTER 2020-07-07 05:53 | Observation (INO) | payer OTHER ==
[~2020-07-07] VITALS: Ht 162.5 cm; Wt 105.5 kg
[~2020-07-07 05:53] MED LIST changes: +PERCOCET 5-3251 EACH PO; +PREDNISONE50 MG PO
[2020-07-07 06:03] VITALS: BP 140/57; BP 150/57
[2020-07-07 06:45] LABS: HEMATOCRIT 33.5 % (37.0-47.0); LYMPH # 1.3 10*3/uL (1.3-4.4); LYMPH % 27.2 % (27.0-41.0); MEAN CELL VOLUME 89.3 fl (81.0-99.0); MEAN CORPUSCULAR HGB 29.9 pg (27.0-31.0); MEAN CORPUSCULAR HGB CONC 33.4 g/dl (33.0-37.0); MEAN PLATELET VOLUME 9.3 fl (9.6-12.3); MONO # 0.4 10*3/uL (0.1-1.0); MONO % 7.2 % (3.0-9.0); NEUT # 3.2 10*3/uL (2.3-7.9); NEUT % 65.4 % (47.0-73.0); PLATELET COUNT AUTOMATED 240 10*3/uL (130-400); RED BLOOD COUNT 3.75 10*6/uL (4.10-5.10); RED CELL DISTRI WIDTH 12.4 % (0-14.5); WHITE BLOOD COUNT 4.9 10*3/uL (4.8-10.8)
[2020-07-07 07:02] LABS: ALBUMIN 3.6 gm/dl (3.1-4.5); ALKALINE PHOSPHATASE 105 U/L (45-117); BUN 11 mg/dl (7-24); CHLORIDE 111 mmol/L (98-107); CREATININE 0.53 mg/dL (0.55-1.02); POTASSIUM 3.4 mmol/L (3.5-5.1); SGOT/AST 5 IU/L (3-35); SGPT/ALT 12 U/L (12-78); SODIUM 141 mmol/L (136-145); TOTAL PROTEIN 6.8 gm/dL (6.4-8.2)
[2020-07-07 07:05] LABS: BILIRUBIN NEGATIVE; CLARITY CLEAR (CLEAR); COLOR YELLOW (YELLOW); GLUCOSE NEGATIVE; KETONE NEGATIVE
[2020-07-07 07:06] LABS: LEUKO ESTERASE 1+ (NEGATIVE); NITRITE NEGATIVE (NEGATIVE); PH 7.5 (4.5-8.0)
[2020-07-07 07:07] LABS: BLOOD TRACE-INTACT (NEGATIVE)
[2020-07-07 07:08] LABS: TROPONIN I < 0.015 ng/ml (<0.045)
[2020-07-07 07:14] LABS: RBC 0-2 rbc/hpf (0-2)
[2020-07-07 07:15] LABS: BACTERIA TRACE
[2020-07-07 10:55] VITALS: BP 130/60
[2020-07-07 12:16] VITALS: BP 124/70
[2020-07-07 16:00] VITALS: BP 120/78; BP 128/72
[2020-07-07 20:00] VITALS: BP 107/64
[2020-07-08] VITALS: BP 124/78
[2020-07-08 06:17] LABS: HEMATOCRIT 34.5 % (37.0-47.0); LYMPH # 1.5 10*3/uL (1.3-4.4); LYMPH % 28.1 % (27.0-41.0); MEAN CELL VOLUME 90.6 fl (81.0-99.0); MEAN CORPUSCULAR HGB 29.9 pg (27.0-31.0); MEAN PLATELET VOLUME 9.7 fl (9.6-12.3); MONO # 0.3 10*3/uL (0.1-1.0); MONO % 6.4 % (3.0-9.0); NEUT # 3.4 10*3/uL (2.3-7.9); NEUT % 65.3 % (47.0-73.0); PLATELET COUNT AUTOMATED 267 10*3/uL (130-400); RED BLOOD COUNT 3.81 10*6/uL (4.10-5.10); RED CELL DISTRI WIDTH 12.5 % (0-14.5); WHITE BLOOD COUNT 5.2 10*3/uL (4.8-10.8)
[2020-07-08 06:41] LABS: ALBUMIN 3.5 gm/dl (3.1-4.5); ALKALINE PHOSPHATASE 107 U/L (45-117); BUN 11 mg/dl (7-24); CHLORIDE 109 mmol/L (98-107); CREATININE 0.55 mg/dL (0.55-1.02); POTASSIUM 3.2 mmol/L (3.5-5.1); SGOT/AST 9 IU/L (3-35); SGPT/ALT 17 U/L (12-78); SODIUM 137 mmol/L (136-145); TOTAL PROTEIN 6.9 gm/dL (6.4-8.2)
[2020-07-08 08:00] VITALS: BP 139/73
== END 2020-07-08 10:44 | disposition home or self-care (01) ==
LOC: ED 05:53 → EDHOLD 09:20 → 4E 09:42
PROVIDERS: Emergency Medicine; Family Medicine; ADMIT Internal Medicine; ATTEND Internal Medicine
DX: R10.9 Unspecified abdominal pain (principal); R55 Syncope and collapse; D64.9 Anemia, unspecified; E83.51 Hypocalcemia; E87.8 Other disorders of electrolyte and fluid balance, not elsewhere classified; E87.6 Hypokalemia; I20.8 Other forms of angina pectoris; R30.0 Dysuria; R31.0 Gross hematuria; E83.42 Hypomagnesemia

== ENCOUNTER 2020-08-04 06:05 | Emergency (ER) | payer OTHER ==
[~2020-08-04] VITALS: Ht 165.1 cm; Wt 98.9 kg
[2020-08-04 06:10] VITALS: BP 136/77
[2020-08-04] MEDS ORDERED: CYCLOBENZAPRINE10 MG PO (06:36)
[2020-08-04] MEDS ORDERED: PREDNISONE50 MG PO (06:36)
== END 2020-08-04 06:50 | disposition home or self-care (01) ==
LOC: ED 06:05
DX: S16.1XXA Strain of muscle, fascia and tendon at neck level, initial encounter (principal); F32.9 Major depressive disorder, single episode, unspecified; F41.9 Anxiety disorder, unspecified; Z79.899 Other long term (current) drug therapy; Z90.49 Acquired absence of other specified parts of digestive tract; X58.XXXA Exposure to other specified factors, initial encounter; Y93.89 Activity, other specified; Y92.89 Other specified places as the place of occurrence of the external cause; Y99.8 Other external cause status

== ENCOUNTER → 2020-11-02 | Outpatient (CLI) | payer OTHER | END | disposition home or self-care (01) | LOC: COVID19 08:22 | PROVIDERS: ATTEND Nurse Practitioner Family | DX: R50.9 Fever, unspecified (principal); R53.83 Other fatigue ==

== ENCOUNTER 2021-05-28 09:21 | Emergency (ER) | payer OTHER ==
[~2021-05-28] VITALS: Wt 95.7 kg
[2021-05-28 09:31] VITALS: BP 140/92
[2021-05-28] MEDS ORDERED: Orphenadrine C100 MG PO (09:43)
[2021-05-28] MEDS ORDERED: PREDNISONE50 MG PO (09:43)
== END 2021-05-28 10:13 | disposition home or self-care (01) ==
LOC: ED 09:21
DX: M79.18 Myalgia, other site (principal); M25.512 Pain in left shoulder; M54.6 Pain in thoracic spine; Z88.8 Allergy status to other drugs, medicaments and biological substances; Z88.6 Allergy status to analgesic agent; Z79.899 Other long term (current) drug therapy; Z90.711 Acquired absence of uterus with remaining cervical stump; Z98.84 Bariatric surgery status; Z98.890 Other specified postprocedural states; Z90.49 Acquired absence of other specified parts of digestive tract; X50.1XXA Overexertion from prolonged static or awkward postures, initial encounter; Y93.89 Activity, other specified; Y92.89 Other specified places as the place of occurrence of the external cause; Y99.8 Other external cause status

== ENCOUNTER 2021-05-30 07:14 | Emergency (ER) | payer OTHER ==
[~2021-05-30] VITALS: Wt 95.7 kg
[2021-05-30 07:30] VITALS: BP 136/72
[2021-05-30] MEDS ORDERED: PREDNISONE20 M1 PO (07:46)
[2021-05-30] MEDS ORDERED: CYCLOBENZAPRINE10 MG PO (07:46)
== END 2021-05-30 08:14 | disposition home or self-care (01) ==
LOC: ED 07:14
DX: S46.912A Strain of unspecified muscle, fascia and tendon at shoulder and upper arm level, left arm, initial encounter (principal); Z88.6 Allergy status to analgesic agent; Z88.8 Allergy status to other drugs, medicaments and biological substances; Z79.899 Other long term (current) drug therapy; X58.XXXA Exposure to other specified factors, initial encounter; Y93.89 Activity, other specified; Y92.89 Other specified places as the place of occurrence of the external cause; Y99.8 Other external cause status

== ENCOUNTER 2022-03-23 03:45 | Emergency (ER) | payer BC, OTHER ==
[~2022-03-23] VITALS: Ht 162.5 cm; Wt 86.2 kg
[~2022-03-23 03:45] MED LIST changes: +PREDNISONE20 M1 PO
[2022-03-23 03:57] VITALS: BP 145/85
[2022-03-23] MEDS ORDERED: CYCLOBENZAPRINE10 MG PO (04:18)
[2022-03-23] MEDS ORDERED: PREDNISONE20 M1 PO (04:18)
== END 2022-03-23 04:31 | disposition home or self-care (01) ==
LOC: ED 03:45
DX: G58.8 Other specified mononeuropathies (principal); M62.830 Muscle spasm of back; Z88.8 Allergy status to other drugs, medicaments and biological substances; Z79.899 Other long term (current) drug therapy; Z90.710 Acquired absence of both cervix and uterus; Z90.49 Acquired absence of other specified parts of digestive tract; Z98.890 Other specified postprocedural states

== ENCOUNTER 2023-04-06 03:21 | Emergency (ER) | payer OTHER ==
[2023-04-06 03:33] VITALS: BP 137/60
[2023-04-06] MEDS ORDERED: NAPROXEN250 MG PO (03:37)
[2023-04-06] MEDS ORDERED: METHOCARBAMOL750 M1 PO (03:37)
[2023-04-07] MEDS ORDERED: CYCLOBENZAPRINE10 MG PO (08:41)
[2023-04-07] MEDS ORDERED: VALIUM5 MG PO (08:41)
== END 2023-04-06 03:37 | disposition home or self-care (01) ==
LOC: ED 03:21
DX: S29.012A Strain of muscle and tendon of back wall of thorax, initial encounter (principal); Z88.8 Allergy status to other drugs, medicaments and biological substances; Z88.6 Allergy status to analgesic agent; Z79.899 Other long term (current) drug therapy; Z90.711 Acquired absence of uterus with remaining cervical stump; Z98.84 Bariatric surgery status; Z90.49 Acquired absence of other specified parts of digestive tract; X58.XXXA Exposure to other specified factors, initial encounter; Y93.89 Activity, other specified; Y92.89 Other specified places as the place of occurrence of the external cause; Y99.8 Other external cause status

== ENCOUNTER 2023-04-07 07:05 | Emergency (ER) | payer OTHER ==
[~2023-04-07] VITALS: Ht 162.5 cm; Wt 74.8 kg
[~2023-04-07 07:05] MED LIST changes: +METHOCARBAMOL750 M1 PO; +NAPROXEN250 MG PO
[2023-04-07 07:24] VITALS: BP 137/81
[2023-04-07] MEDS ORDERED: VALIUM5 MG PO (08:41)
[2023-04-07] MEDS ORDERED: CYCLOBENZAPRINE10 MG PO (08:41)
== END 2023-04-07 08:59 | disposition home or self-care (01) ==
LOC: ED 07:05
DX: M62.830 Muscle spasm of back (principal); M54.6 Pain in thoracic spine; Z88.8 Allergy status to other drugs, medicaments and biological substances; Z88.6 Allergy status to analgesic agent; Z79.899 Other long term (current) drug therapy; Z90.711 Acquired absence of uterus with remaining cervical stump; Z98.84 Bariatric surgery status; Z90.49 Acquired absence of other specified parts of digestive tract

== ENCOUNTER 2024-01-19 06:36 | Emergency (ER) | payer OTHER ==
[~2024-01-19] VITALS: Ht 162.5 cm; Wt 84.8 kg
[~2024-01-19 06:36] MED LIST changes: +VALIUM5 MG PO
[2024-01-19 06:41] VITALS: BP 165/88
[2024-01-19] MEDS ORDERED: Cyclobenzaprine Hydrochlorid 10 MG TAB PO ONE (06:45)
[2024-01-19] MEDS ORDERED: CYCLOBENZAPRINE10 MG PO (06:46)
== END 2024-01-19 06:56 | disposition home or self-care (01) ==
LOC: ED 06:36
DX: M62.838 Other muscle spasm (principal); F32.A Depression, unspecified; F41.9 Anxiety disorder, unspecified; Z88.8 Allergy status to other drugs, medicaments and biological substances; Z90.710 Acquired absence of both cervix and uterus; Z98.890 Other specified postprocedural states; Z90.49 Acquired absence of other specified parts of digestive tract

== ENCOUNTER → 2024-06-30 | Outpatient (CLI) | payer OTHER | END | disposition home or self-care (01) | LOC: LAB 00:01 | PROVIDERS: ATTEND Emergency Medicine | DX: J02.9 Acute pharyngitis, unspecified (principal) ==

== ENCOUNTER → 2024-08-17 | Outpatient (CLI) | payer OTHER ==
[2024-08-17 07:55] LABS: HEMATOCRIT 37.2 % (37.0-47.0); LYMPH # 1.7 10*3/uL (1.3-4.4); LYMPH % 32.9 % (27.0-41.0); MEAN CELL VOLUME 89.4 fl (81.0-99.0); MEAN CORPUSCULAR HGB CONC 33.6 g/dl (33.0-37.0); MEAN PLATELET VOLUME 9.2 fl (9.6-12.3); MONO # 0.6 10*3/uL (0.1-1.0); MONO % 11.3 % (3.0-9.0); NEUT # 2.9 10*3/uL (2.3-7.9); NEUT % 55.6 % (47.0-73.0); PLATELET COUNT AUTOMATED 246 10*3/uL (130-400); RED BLOOD COUNT 4.16 10*6/uL (4.10-5.10); RED CELL DISTRI WIDTH 12.3 % (0-14.5); WHITE BLOOD COUNT 5.1 10*3/uL (4.8-10.8)
[2024-08-17 08:52] LABS: VITAMIN D, 25-HYDROXY 43.4 ng/mL (30-100)
[2024-08-17 09:04] LABS: ALKALINE PHOSPHATASE 139 U/L (46-116); BUN 12 mg/dl (9-23); CHLORIDE 105 mmol/L (98-107); CHOLESTEROL 174 mg/dL (<200); LDL CHOLESTEROL 95 mg/dL (9-159); POTASSIUM 4.4 mmol/L (3.4-5.1); SGPT/ALT 11 U/L (5-49); TOTAL PROTEIN 7.3 gm/dL (6.0-8.0); TRIGLYCERIDES 137 mg/dl (<150)
== END | disposition home or self-care (01) ==
LOC: LAB 07:39
PROVIDERS: ATTEND Nurse Practitioner Family
DX: Z13.220 Encounter for screening for lipoid disorders (principal); R53.82 Chronic fatigue, unspecified; K21.9 Gastro-esophageal reflux disease without esophagitis; E55.9 Vitamin D deficiency, unspecified; D50.9 Iron deficiency anemia, unspecified; F41.9 Anxiety disorder, unspecified

== ENCOUNTER 2025-02-15 07:55 | Emergency (ER) | payer OTHER ==
[~2025-02-15] VITALS: Ht 162.5 cm; Wt 95.7 kg
[2025-02-15 08:10] VITALS: BP 138/64
[2025-02-15] MEDS ORDERED: Ondansetron Hydrochloride 4 MG/2 ML VIAL IV ONE (08:25)
[2025-02-15] MEDS ORDERED: SODIUM CHLORIDE 0.9% 1,000 ML IV ONE (08:25)
[2025-02-15] MEDS ORDERED: IOHEXOL 300 MG/ML 100 ML VIAL IV ONE (08:25)
[2025-02-15] MEDS ORDERED: LEXAPRO10 MG PO (08:37)
[2025-02-15 08:41] LABS: BASO % 0.1 % (0.0-1.0); HEMATOCRIT 36.6 % (37.0-47.0); MEAN CELL VOLUME 90.8 fl (81.0-99.0); MEAN CORPUSCULAR HGB 29.8 pg (27.0-31.0); MEAN CORPUSCULAR HGB CONC 32.8 g/dl (33.0-37.0); MEAN PLATELET VOLUME 9.5 fl (9.6-12.3); MONO # 0.5 10*3/uL (0.1-1.0); MONO % 7.1 % (3.0-9.0); NEUT # 4.8 10*3/uL (2.3-7.9); PLATELET COUNT AUTOMATED 305 10*3/uL (130-400); RED BLOOD COUNT 4.03 10*6/uL (4.10-5.10); RED CELL DISTRI WIDTH 12.5 % (0-14.5)
[2025-02-15 09:16] LABS: ALKALINE PHOSPHATASE 140 U/L (46-116); BUN 13 mg/dl (9-23); CHLORIDE 105 mmol/L (98-107); LIPASE 32 U/L (12-53); POTASSIUM 3.8 mmol/L (3.4-5.1); SGPT/ALT 14 U/L (5-49); TOTAL PROTEIN 7.2 gm/dL (6.0-8.0)
[2025-02-15 09:47] LABS: BILIRUBIN Negative (Negative); BLOOD Trace-Intact (Negative); CLARITY Clear (Clear); COLOR Yellow (Yellow); GLUCOSE Negative (Negative); KETONE Negative (Negative); LEUKO ESTERASE 2+ (Negative); NITRITE Negative (Negative); PH 7.5 (4.5-8.0); SPECIFIC GRAVITY >= 1.030 (1.001-1.030)
[2025-02-15 10:24] LABS: BACTERIA 1+; WBC 16-20 wbc/hpf (0-5)
[2025-02-15] MEDS ORDERED: CIPRO500 MG PO (10:30)
== END 2025-02-15 10:35 | disposition home or self-care (01) ==
LOC: ED 07:55
PROVIDERS: Internal Medicine
DX: N39.0 Urinary tract infection, site not specified (principal); F32.A Depression, unspecified; F41.9 Anxiety disorder, unspecified; Z79.899 Other long term (current) drug therapy; Z88.5 Allergy status to narcotic agent; Z88.8 Allergy status to other drugs, medicaments and biological substances; Z90.49 Acquired absence of other specified parts of digestive tract; Z90.710 Acquired absence of both cervix and uterus; Z98.890 Other specified postprocedural states